=== PATIENT | female | born 1985 | race Caucasian/White ===

== ENCOUNTER 2020-10-16 19:21 | Emergency (ER) | payer SELFPAY ==
--- NOTE | ~2020-10-16 | XR_ITS ---
XR shoulder RT min 2V DATE: 10/16/2020 20:01 INDICATION: Fall. Right shoulder injury, pain TECHNIQUE: 4 views COMPARISON: None FINDINGS: No right shoulder fracture or dislocation. Normal alignment at the acromioclavicular and gl enohumeral joints. No periosteal reaction or bone destruction or abnormal soft tissue calcification. IMPRESSION: Negative Reviewed, dictated and finalized at location A. IMPRESSION: Negative
--- NOTE | ~2020-10-16 | XR_ITS ---
[id number] DATE: 10/16/2020 20:00 INDICATION: Fall. Patient landed on someone today. Right axillary rib pain. TECHNIQUE: PA chest. 3 views of the right ribs. COMPARISON: None FINDINGS: No right rib fracture is evident. Normal heart size. No hilar or mediastinal enlargement. The lungs are clear of infiltrate or consolid ation. No pleural effusion or pulmonary vascular congestion or pneumothorax. IMPRESSION: No evidence of right rib fracture No active cardiac pulmonary disease Reviewed, dictated and finalized at [facility]. Reviewed, dictated and finalized at location A.
[2020-10-16 19:24] VITALS: BP 118/77; PULSE 83; RESP 16; TEMP 36.4; O2SAT 93
--- NOTE | 2020-10-16 19:49 | ED.FALL ---
HPI - Fall General Chief Complaint: Fall Stated Complaint: Fall on Tuesday R Chest pain Time Seen by Provider: 10/16/20 19:37 Source: patient History of Present Illness HPI Narrative: Patient is 34 years old white female had a fall while roller skating into some body else knee to right upper chest 5 days ago, complaining of right chest pain and right shoulder pain. Patient denies head injury or other injuries. Related Data Home Medications Medication Instructions Recorded Confirmed No Home Medications 10/16/20 10/16/20 Allergies Allergy/AdvReac Type Severity Reaction Status Date / Time No Known Allergies Allergy Verified 10/16/20 19:32 Review of Systems Review of Systems: Narrative: CONSTITUTIONAL: Denies fever, chills, or sweats. EYES: Denies visual changes, redness, or discharge. ENT: Denies rhinorrhea, congestion, sore throat, or otalgia. CARDIOVASCULAR: Denies chest pain, palpitations, or edema. RESPIRATORY: Denies cough or dyspnea. GASTROINTESTINAL: Denies abdominal pain, nausea, vomiting, or diarrhea. GENITOURINARY: Denies dysuria or hematuria. SKIN: Denies rash or itching. MUSCULOSKELETAL: Denies back pain, joint pain, or myalgia. NEUROLOGIC: Denies headache, numbness, or weakness. PSYCHIATRIC: Denies anxiety or depression. Exam Narrative: Exam Narrative: General appearance: Well-developed, well-nourished Skin: Normal color Head: Normocephalic, nontraumatic Eyes: Clear conjunctiva ENT: Oropharynx normal, ears normal, nose normal Neck: Supple, nontender Chest and respiratory: Airway patent, no respiratory distress, no accessory muscle use, patient severe tenderness right upper chest, bruised, minimal range of motion of right shoulder because of pain Heart: Regular rate/rhythm Abdomen: Soft, nontender, no organomegaly, quiet bowel sounds Vascular: Normal peripheral pulses, normal capillary refill. Musculoskeletal: Normal range of motion, nontender back Neurologic: Alert and oriented ?3, AUTOMOTIVE TECHNICIAN is normal as tested, no gross motor deficit Course Course Emergency Course: Stable Vital Signs Vital signs: Vital Signs Temperature 36.4 C L 10/16/20 19:24 Pulse Rate 83 10/16/20 19:24 Respiratory Rate 16 10/16/20 19:24 Blood Pressure 118/77 10/16/20 19:24 Pulse Oximetry 93 10/16/20 19:24 Temperature 36.4 C L 10/16/20 19:24 Pulse Rate 83 10/16/20 19:24 Respiratory Rate 16 10/16/20 19:24 Blood Pressure 118/77 10/16/20 19:24 Pulse Oximetry 93 10/16/20 19:24 MDM - Fall MDM Narrative Medical decision making narrative: Contusion, rib fracture is my concern. X-ray right ribs, chest and right shoulder ordered. Ibuprofen 800 mg and Cowen 5/325 mg ordered. Differential Diagnosis Differential diagnosis: Likely other (Chest wall contusion, rib fracture, shoulder sprain/strain) Imaging Data Radiologist's impression: Impressions Ribs w/Chest X-Ray 10/16/20 20:15 IMPRESSION: No evidence of right rib fracture No active cardiac pulmonary disease Shoulder X-Ray 10/16/20 20:18 IMPRESSION: Negative Critical Care Time Critical Care Time Critical Care Time: No Discharge Plan Discharge Clinical Impression: Chest wall contusion Qualifiers: Encounter type: initial encounter Laterality: right Qualified Code(s): S20.211A - Contusion of right front wall of thorax, initial encounter Patient Disposition: Home, Self-Care Condition: Stable Instructions: Chest Wall Pain (ED) Additional Instructions: Return if symptoms are worsening , call your family physician for appointment, take Tylenol as as needed for aches and pain, continue home medications. Prescriptions: No
[2020-10-16] MEDS: IBUPROFEN 400 MG TABLET 800 MG PO (20:05)
[2020-10-16] MEDS: HYDROcodone/acetaminophen (*CRX) 5-325 MG TABLET 1 TAB PO (20:05)
== END 2020-10-16 20:44 | disposition home or self-care (01) ==
PROVIDERS: Emergency Provider Emergency Medicine
DX: S20.211A Contusion of right front wall of thorax, initial encounter (principal); V00.121A Fall from non-in-line roller-skates, initial encounter; Y93.51 Activity, roller skating (inline) and skateboarding
CPT/HCPCS: 71101; 73030; 99284; A9270

== ENCOUNTER 2020-12-04 20:28 | Emergency (ER) | payer SELFPAY ==
--- NOTE | ~2020-12-04 | XR_ITS ---
EXAMINATION: XR chest 1V portable DATE: 12/04/2020 22:05 INDICATION: Cough. TECHNIQUE: A single frontal view of the chest was obtained. COMPARISON: Chest 2 views 02/05/2015 FINDINGS: There is mild scarring at the lung apices. No pleural effusion or pneumothorax. The heart s ize is normal. IMPRESSION: 1. Mild scarring at the lung apices. Reviewed, dictated and finalized at location A.
[2020-12-04 20:34] VITALS: BP 137/67; PULSE 95; RESP 18; TEMP 36.1; O2SAT 95
--- NOTE | 2020-12-04 21:56 | ED.URI ---
HPI - URI/Sore Throat General Chief Complaint: Upper Respiratory Infection Stated Complaint: bronchitis Time Seen by Provider: 12/04/20 20:56 Source: patient Mode of arrival: ambulatory Limitations: no limitations History of Present Illness HPI Narrative: 35-year-old with no major medical problems here with complaints of cough congestion for the past 2 days. She denies any fever. She states that productive. Has a history of bronchitis. MD elicited complaint: cough Consistency: constant Severity: mild Able to tolerate fluids by mouth: Yes Exacerbating factors: nothing Relieving factors: nothing Related Data Allergies Allergy/AdvReac Type Severity Reaction Status Date / Time No Known Allergies Allergy Verified 12/04/20 20:36 Review of Systems Review of Systems: All systems reviewed & are unremarkable except as noted in HPI and below Constitutional: Constitutional: Reports no additional constitutional complaints Eyes: Eyes: Reports no additional eye complaints ENT: Reports system reviewed and no additional complaints, except as documented Cardiovascular: Cardiovascular: Reports no additional cardiovascular complaints Respiratory: Respiratory: Reports as per HPI Gastrointestinal: Gastrointestinal: Reports no additional gastrointestinal complaints Musculoskeletal: Musculoskeletal: Reports no additional musculoskeletal complaints Integumentary/Breasts: Skin/Breast: Reports system reviewed and no additional complaints, except as docu Neurologic: Reports system reviewed and no additional complaints, except as documented Psychiatric: Psychiatric: Reports no additional psychiatric complaints PMFSH Social History Social History Gender identity (if verbalized by the patient): Female Exam Narrative: Exam Narrative: GENERAL: Well-appearing, well-nourished, and in no acute distress. HEAD: Normocephalic, atraumatic. EYES: PERRLA and EOMI. ENT: Nares clear, no rhinorrhea or epistaxis. Mucous membranes moist. NECK: Supple. CHEST: No respiratory distress. Mild wheeze HEART: Regular rate and rhythm. No murmur heard. Normal peripheral pulses. EXTREMITIES: Normal range of motion. No edema. SKIN: Warm, dry, no rash. NEURO: No focal deficits. Alert and oriented x3. PSYCH: Normal mood and affect. Course Course Emergency Course: Inform patient about her clinical findings advised her to take prednisone as prescribed and inhaler as needed. Vital Signs Vital signs: Vital Signs Temperature 36.1 C L 12/04/20 20:34 Pulse Rate 95 12/04/20 20:34 Respiratory Rate 18 12/04/20 20:34 Blood Pressure 137/67 12/04/20 20:34 Pulse Oximetry 95 12/04/20 20:34 Temperature 36.1 C L 12/04/20 20:34 Pulse Rate 95 12/04/20 20:34 Respiratory Rate 18 12/04/20 20:34 Blood Pressure 137/67 12/04/20 20:34 Pulse Oximetry 95 12/04/20 20:34 Discharge Plan Discharge Clinical Impression: Bronchitis Patient Disposition: Home, Self-Care Condition: Stable Instructions: Antibiotic Form, Acute Bronchitis (ED) Prescriptions: New prednisone 20 mg tablet 20 mg PO BID Qty: 14 RF: 0 albuterol sulfate [ProAir HFA] 90 mcg/actuation HFA aerosol inhaler 2 puff inhalation QID PRN (Reason: shortness of breath or wheezing) Qty: 6.7 RF: 0 Follow-up/Referrals: PHYSICIAN,RN BSN [Primary Care Provider] - Clifford Bran MD [Physician] - Time of Disposition: 22:00
[2020-12-04 22:12] VITALS: BP 128/84; PULSE 72; RESP 16; TEMP 36.2; O2SAT 100
== END 2020-12-04 22:13 | disposition home or self-care (01) ==
PROVIDERS: Emergency Provider Family Medicine
DX: J40 Bronchitis, not specified as acute or chronic (principal)
CPT/HCPCS: 71045; 99283

== ENCOUNTER 2022-08-30 18:26 | Outpatient (CLI) | payer BC, SELFPAY ==
--- NOTE | ~2022-08-30 | XR_ITS ---
EXAM: XR lumbar spine 2-3V DATE: 08/30/2022 19:03 HISTORY: POLYARTHRALGIA, SMOKER, ARTHRALGIA . COMPARISON: None available. FINDINGS: 5 nonrib-bearing lumbar-type vertebral bodies. Pedicles intact. Normal vertebral body alig nment. Benign bone island in L1. Vertebral body heights preserved. Mild disc space narrowing at L3-4, remaining disc spaces are preserved. Mild multilevel facet sclerosis. No fracture or dislocation. IMPRESSION: Mild degenerative disc disease at L3-4. Mild facet arthropathy. Reviewed, dictated and finalized at location K. EL LOADER OPERATOR
--- NOTE | ~2022-08-30 | XR_ITS ---
EXAM: XR hand LT 2V, XR hand RT 2V DATE: 08/30/2022 19:03 HISTORY: POLYARTHRALGIA . COMPARISON: None available. FINDINGS: Normal mineralization. No fracture or dislocation. No lytic or blastic lesion. Joint space s are maintained. No erosion or periosteal change. Soft tissues within normal limits. IMPRESSION: Normal bilateral hand radiograph findings. Reviewed, dictated and finalized at location K. GE MANAGEMENT ANALYST IMPRESSION: Normal bilateral hand radiograph findings.
--- NOTE | ~2022-08-30 | XR_ITS ---
EXAMINATION: XR chest 2V Exam Date/Time: 08/30/2022 18:45 CLINIC DIRECTOR HISTORY: POLYARTHRALGIA, SMOKER, Comparison: 12/04/2020. RESULT: Lines, tubes, and devices: None. Lungs and pleura: Biapical pleural scarring. Scattered reticulonodular opacities and cuffing. Cardiomediastinal silhouette: Stable. Other: No acute osseous or upper abdominal finding. IMPRESSION: Pulmonary opacities may represent bronchiolitis, as can be seen with atypical infection, asthma, aspi ration, and small airways disease. Reviewed, dictated and finalized at location K. IC DIRECTOR IMPRESSION: Pulmonary opacities may represent bronchiolitis, as can be seen with atypical i nfection, asthma, aspiration, and small airways disease.
--- NOTE | ~2022-08-30 | XR_ITS ---
EXAM: XR sacroiliac joints min 3V DATE: 08/30/2022 19:03 HISTORY: POLYARTHRALGIA, SMOKER . COMPARISON: None available. FINDINGS: Normal mineralization. No fracture or dislocation. No lytic or blastic lesion. Mild subcho ndral sclerosis in the inferior aspect of the right sacroiliac joint with mild bilateral SI joint ost eophytosis. No erosion or periosteal change. Soft tissues within normal limits. 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 Reviewed, dictated and finalized at location K. S AGENT FOOD VENDING SERVICE IMPRESSION: Very mild degenerative change in the bilateral SI joints, right gre ater than left.
== END 2022-08-30 18:27 | disposition home or self-care (01) ==
PROVIDERS: Visit Provider Physician Assistant Medical
DX: M25.50 Pain in unspecified joint (principal); L40.9 Psoriasis, unspecified; M53.3 Sacrococcygeal disorders, not elsewhere classified; M51.36 Other intervertebral disc degeneration, lumbar region; R91.8 Other nonspecific abnormal finding of lung field
CPT/HCPCS: 71046; 72100; 72202; 73120